=== PATIENT | male | born 1980 | race Two or more races ===

== ENCOUNTER 2023-06-28 21:45 | Emergency (ER) | payer OTHER ==
[2023-06-28 21:48] VITALS: BP 137/83; PULSE 101; RESP 16; TEMP 98.5; BMI 27.5
[2023-06-28] MEDS ORDERED: FAMOTIDINE 20 MG/50 ML IVPB 20 MG/50 ML MG IVPB ONE (23:07)
[2023-06-28] MEDS ORDERED: ACETAMINOPHEN INJECTION 100 ML IVPB ONE (23:07)
[2023-06-28] MEDS ORDERED: ONDANSETRON 4 MG/2 ML VIAL ONE (23:07)
[2023-06-28 23:14] LABS: BASO % 0.1 % (0-2.0); EOS % 0.3 % (0-4.5); HEMATOCRIT 44.5 % (35.4-49); HEMOGLOBIN 15.2 GM/dL (11.7-16.9); LYMPH % 2.4 % (8-40); MCH 29.4 pg (25.7-33.7); MCHC 34.1 g/dl (32.0-35.9); MEAN CELL VOLUME 86.2 fl (80-96); MONO % 4.9 % (3.8-10.2); NEUT % 92.3 % (42.8-82.8); PLATELET COUNT 337 10^3/uL (134-434); RBC 5.16 M/mm3 (4.00-5.60); RDW 13.6 % (11.9-15.9); WHITE BLOOD COUNT 13.8 K/mm3 (4.0-10.0)
[2023-06-28] MEDS: ACETAMINOPHEN 1000 MG/100 ML BAG IVPB ONE (23:17)
[2023-06-28] MEDS: ONDANSETRON 4 MG/2 ML VIAL IVPUSH ONE (23:17)
[2023-06-28] MEDS: FAMOTIDINE 20 MG/50 ML IVPB 20 MG/50 ML MG IVPB ONE (23:17)
[2023-06-28] MEDS: SODIUM CHLORIDE 1,000 ML IV STA (23:17)
[2023-06-28 23:32] LABS: POTASSIUM 4.6 mmol/L (3.5-5.1)
[2023-06-28 23:35] LABS: CALCIUM 10.1 mg/dL (8.5-10.1)
[2023-06-28 23:36] LABS: BLOOD UREA NITROGEN 21.7 mg/dL (7-18)
[2023-06-28 23:39] LABS: CREATININE 1.2 mg/dL (0.55-1.3)
[2023-06-28 23:40] LABS: BILIRUBIN,TOTAL 0.5 mg/dL (0.2-1)
[2023-06-28 23:41] LABS: TOT PROT 7.8 g/dl (6.4-8.2)
[2023-06-28 23:54] LABS: TARGET CELLS 1+
[2023-06-29 00:05] LABS: PLATELET ESTIMATE ADEQUATE
== END 2023-06-29 02:00 | disposition home or self-care (01) ==
LOC: JER 21:45
PROC: 3E033GC Introduction of Other Therapeutic Substance into Peripheral Vein, Percutaneous Approach (ICD-10-PCS; principal; 2023-06-28)
PROC: 3E033NZ Introduction of Analgesics, Hypnotics, Sedatives into Peripheral Vein, Percutaneous Approach (ICD-10-PCS; 2023-06-28)
PROC: 3E033GC Introduction of Other Therapeutic Substance into Peripheral Vein, Percutaneous Approach (ICD-10-PCS; 2023-06-28)
DX: R11.2 Nausea with vomiting, unspecified (principal); R10.10 Upper abdominal pain, unspecified; Z20.822 Contact with and (suspected) exposure to COVID-19
CPT/HCPCS: 0241U-QW; 36415; 80053; 83690; 85025; 99284-25; J0131